=== PATIENT | male | born 1950 | race Caucasian/White ===

== ENCOUNTER → 2020-10-28 | Outpatient (CLI) | payer MEDICARE | END | disposition home or self-care (01) | LOC: PETCFH 13:22 | PROVIDERS: ATTEND Internal Medicine Hematology & Oncology | DX: C83.38 Diffuse large B-cell lymphoma, lymph nodes of multiple sites (principal); I25.10 Atherosclerotic heart disease of native coronary artery without angina pectoris; N20.0 Calculus of kidney; K57.30 Diverticulosis of large intestine without perforation or abscess without bleeding; M47.816 Spondylosis without myelopathy or radiculopathy, lumbar region | CPT/HCPCS: 78815; A9552 ==

== ENCOUNTER 2021-01-13 12:58 | Outpatient (CLI) | payer MEDICARE | END 2021-01-13 23:59 | disposition home or self-care (01) | LOC: PETCFH 12:58 | PROVIDERS: ATTEND Internal Medicine Hematology & Oncology | DX: C83.38 Diffuse large B-cell lymphoma, lymph nodes of multiple sites (principal); I25.10 Atherosclerotic heart disease of native coronary artery without angina pectoris; K57.30 Diverticulosis of large intestine without perforation or abscess without bleeding; M47.816 Spondylosis without myelopathy or radiculopathy, lumbar region | CPT/HCPCS: 78815; A9552 ==

== ENCOUNTER 2021-01-20 13:33 | Day surgery (SDC) | payer MEDICARE ==
[~2021-01-20] VITALS: Ht 175.3 cm; Wt 84.5 kg
[2021-01-20] MEDS ORDERED: CHLORHEXIDINE 15 ML UDC ONE (13:59)
[2021-01-20] MEDS ORDERED: iron PO (14:08)
[2021-01-20] MEDS ORDERED: ALLO300T PO (14:08)
[2021-01-20] MEDS ORDERED: calcium PO (14:08)
[2021-01-20] MEDS ORDERED: magnesium PO (14:08)
[2021-01-20] MEDS ORDERED: OMEP-110 PO (14:08)
[2021-01-20] MEDS ORDERED: ATEN50TA41 PO (14:08)
[2021-01-20] MEDS ORDERED: CYCL10TA2 PO (14:08)
[2021-01-20] MEDS ORDERED: MULT-658 PO (14:08)
[2021-01-20 14:18] VITALS: BP 21/79
[2021-01-20] MEDS ORDERED: LACTATED RINGERS 1,000 ML IV SCH (14:30)
[2021-01-20] MEDS ORDERED: CHLORHEXIDINE 15 ML UDC PO ONE (14:30)
[2021-01-20] MEDS ORDERED: LABETALOL 5MG/ML, 20ML IV PRN (15:30)
[2021-01-20] MEDS ORDERED: EPHEDRINE 50 MG/ML, 1ML IVPush PRN (15:30)
[2021-01-20] MEDS ORDERED: HYDROmorphone 1 MG/ML, 1ML INJ IVPush PRN (15:30)
[2021-01-20] MEDS ORDERED: ACETAMINOPHEN 325 MG TABLET PO PRN (15:30)
[2021-01-20] MEDS ORDERED: hydrALAzine 20 MG/ML, 1ML IV PRN (15:30)
[2021-01-20] MEDS ORDERED: PROMETHAZINE 25 MG/ML, 1ML IVPush PRN (15:30)
[2021-01-20] MEDS ORDERED: OXYcodone 5 MG/5 ML ORAL.SOL UDC PO PRN (15:30)
[2021-01-20] MEDS ORDERED: ONDANSETRON 2MG/ML, 2ML IVPush PRN (15:30)
[2021-01-20] MEDS ORDERED: FENTANYL PF 100 MCG/2ML IV PRN (15:30)
[2021-01-20 15:37] LABS: BASOPHILS % (AUTO) 1 % (0-1); EOSINOPHILS % (AUTO) 7 % (1-7); LYMPHOCYTES % (AUTO) 9 % (22-44); MEAN CORPUSCULAR HEMOGLOBIN 31.7 pg (27.5-34.5); MEAN CORPUSCULAR HGB CONC 34.1 g/dL (33.2-36.2); MEAN PLATELET VOLUME 8.3 fL (7.4-10.4); MONOCYTES % (AUTO) 16 % (2-9); NEUTROPHILS % (AUTO) 66 % (42-75); PLATELET COUNT 190 x10^3/uL (130-400); RED BLOOD COUNT 3.22 x10^6/uL (4.38-5.82); RED CELL DISTRIBUTION WIDTH 14.9 % (9.4-14.8)
[2021-01-20 15:57] LABS: INTERNATIONAL NORMALIZED RATIO 0.96 (0.93-1.1); PROTHROMBIN TIME 10.3 Seconds (9.6-11.5)
[2021-01-20 16:00] LABS: ANION GAP 9 mmol/L (5-15); CALCIUM 8.9 mg/dL (8.5-10.1); CHLORIDE 106 mmol/L (98-107); CREATININE 1.21 mg/dL (0.7-1.3)
[2021-01-20] MEDS ORDERED: FENTANYL PF 100 MCG/2ML ONE (16:31)
[2021-01-20] MEDS ORDERED: CEFAZOLIN 1,000 MG ONE (16:35)
[2021-01-20] MEDS ORDERED: LIDOCAINE-MPF 2% ,5ML ONE (16:35)
[2021-01-20] MEDS ORDERED: ONDANSETRON 2MG/ML, 2ML ONE (16:35)
[2021-01-20] MEDS ORDERED: PROPOFOL 10 MG/ML, 20ML ONE (16:35)
[2021-01-20] MEDS ORDERED: DEXAMETHASONE 4 MG/ML, 1ML ONE (16:35)
[2021-01-20] MEDS ORDERED: OMNIPAQUE 350 MG/ML, 50 ML BOTTLE ONE (16:45)
[2021-01-20] MEDS ORDERED: EPHEDRINE 50 MG/ML, 1ML ONE (16:49)
[2021-01-20] MEDS ORDERED: OMNIPAQUE 350 MG/ML, 50 ML BOTTLE IV ONE (16:54)
[2021-01-20] MEDS ORDERED: PHENAZOPYRIDINE 200 MG TABLET ONE (17:34)
[2021-01-20] MEDS ORDERED: PHENAZOPYRIDINE 200 MG TABLET PO ONE (18:00)
== END 2021-01-20 18:25 | disposition home or self-care (01) ==
LOC: OUT 13:33
PROVIDERS: ATTEND Urology
DX: N13.30 Unspecified hydronephrosis (principal); Z46.6 Encounter for fitting and adjustment of urinary device; C85.83 Other specified types of non-Hodgkin lymphoma, intra-abdominal lymph nodes; I10 Essential (primary) hypertension; Z20.822 Contact with and (suspected) exposure to COVID-19; Z79.899 Other long term (current) drug therapy; Z92.21 Personal history of antineoplastic chemotherapy
CPT/HCPCS: 36415; 52332; 80048; 85025; 85610; 87635; C1758; C1769; C2617; J0690; J1100; J2405; J2704; J3010; Q9967